=== PATIENT | male | born 1985 | race African-American/Black ===

== ENCOUNTER 2025-02-16 07:51 | Emergency (ER) | payer OTHER ==
[~2025-02-16] VITALS: Ht 185.4 cm; Wt 89.9 kg
[2025-02-16 10:07] VITALS: TEMP 97.8
[2025-02-16 12:00] VITALS: BP 137/86; O2SAT 99
== END 2025-02-16 12:03 | disposition home or self-care (01) ==
LOC: M ED 07:51
DX: S76.011A Strain of muscle, fascia and tendon of right hip, initial encounter (principal); X50.0XXA Overexertion from strenuous movement or load, initial encounter; F10.10 Alcohol abuse, uncomplicated; Y92.89 Other specified places as the place of occurrence of the external cause; Y93.89 Activity, other specified; Y99.1 Military activity